=== PATIENT | female | born 2000 | race American Indian/Alaskan Native ===

== ENCOUNTER 2021-01-08 17:10 | Emergency (ER) | payer SELFPAY ==
[2021-01-08 17:16] VITALS: BP 138/87
[2021-01-08] MEDS ORDERED: ACETAMINOPHEN 325 MG TAB PO ONE (18:21)
--- NOTE | 2021-01-08 18:22 | Emergency Department Report ---
ED Head Trauma HPI - General Chief complaint: Head Injury Stated complaint: SLIPPED ON STAIRS HIT BACK OF HEAD Time Seen by Provider: 01/08/21 18:15 Source: patient Mode of arrival: Ambulatory Limitations: No Limitations - History of Present Illness Initial comments: 20-year-old female presents to the ER today with complaints of head injury. Patient states that she was walking down the steps holding a baby when she slipped on something and slid down 5 steps. She states that she struck the back of her head on the last day. She denies any LOC but complains of a severe headache and some neck pain. She has not taken anything for pain prior to coming in. She denies any nausea vomiting, vision changes, speech changes, focal weakness, numbness, tingling, back pain, chest pain or abdominal pain or any other symptoms. She is not on any blood thinners. She has no significant past medical history. MD Complaint: head injury, fall -: Sudden (this afternoon ) - Related Data Previous Rx's Medication Instructions Recorded Last Taken Type Cyclobenzaprine HCl [Flexeril 5 MG 5 mg PO TID PRN #20 tab 01/08/21 Unknown Rx TAB] Naproxen 500 mg PO Q12H PRN #20 tablet 01/08/21 Unknown Rx ED Review of Systems ROS: Stated complaint: SLIPPED ON STAIRS HIT BACK OF HEAD Other details as noted in HPI Comment: All other systems reviewed and negative Constitutional: denies: chills, fever Eyes: denies: eye pain, eye discharge, vision change ENT: denies: ear pain, throat pain Respiratory: denies: cough, shortness of breath, SOB with exertion, SOB at rest, wheezing Cardiovascular: denies: chest pain, palpitations Gastrointestinal: denies: abdominal pain, nausea, vomiting, diarrhea, constipation, hematemesis, melena, hematochezia Genitourinary: denies: urgency, dysuria, discharge Musculoskeletal: denies: back pain, joint swelling, arthralgia, myalgia Neurological: headache. denies: weakness, numbness, paresthesias, confusion, abnormal gait Psychiatric: denies: anxiety, depression, auditory hallucinations, visual hallucinations, homicidal thoughts, suicidal thoughts Hematological/Lymphatic: denies: easy bleeding, easy bruising ED Past Medical Hx - Past Medical History Previous Medical History?: No - Surgical History Past Surgical History?: No - Medications Home Medications: Home Medications Medication Instructions Recorded Confirmed Last Taken Type Cyclobenzaprine HCl [Flexeril 5 MG 5 mg PO TID PRN #20 tab 01/08/21 Unknown Rx TAB] Naproxen 500 mg PO Q12H PRN #20 tablet 01/08/21 Unknown Rx ED Physical Exam - General Limitations: No Limitations General appearance: alert, in no apparent distress - Head Head exam: Present: atraumatic, normocephalic, normal inspection, other (Tenderness to palpation to the occipital scalp) - Eye Eye exam: Present: normal appearance, PERRL, EOMI Pupils: Present: normal accommodation - ENT ENT exam: Present: normal exam, mucous membranes moist - Neck Neck exam: Present: normal inspection, tenderness (Bilateral paraspinal muscle and midline tenderness mid to lower cervical spine.), full ROM - Respiratory Respiratory exam: Present: normal lung sounds bilaterally. Absent: respiratory distress, chest wall tenderness - Cardiovascular Cardiovascular Exam: Present: regular rate, normal rhythm, normal heart sounds - GI/Abdominal GI/Abdominal exam: Present: soft. Absent: distended, tenderness, guarding - Back Exam Back exam: Present: normal inspection, full ROM - Neurological Exam Neurological exam: Present: alert, oriented X3, CN II-XII intact, normal gait - Psychiatric Psychiatric exam: Present: normal affect, normal mood - Skin Skin exam: Present: intact ED Course Vital Signs 01/08/21 17:15 Temperature 98.0 F Pulse Rate 89 Respiratory 18 Rate Blood Pressure 138/87 O2 Sat by Pulse 100 Oximetry - Radiology Data Radiology results: report reviewed Patient: DUKE MORLEY MR#: [id number] : 2000 Acct:[id number] Age/Sex: 20 / F ADM Date: 01/08/21 Loc: ED Attending Dr: Ordering Physician: LAVERNE PENA Date of Service: 01/08/21 Procedure(s): CT head/brain wo con Accession Number(s): [id number] cc: LAVERNE PENA NONENHANCED CT SCAN OF THE HEAD: INDICATION / CLINICAL INFORMATION: 20 years Female; Head injury/DENISE. TECHNIQUE: Routine CT head without contrast. All CT scans at this location are performed using CT dose reduction for ALARA by means of automated exposure control. COMPARISON: None. FINDINGS: BRAIN / INTRACRANIAL CONTENTS: No intracranial sequela from the trauma; no scalp hematoma; no air- fluid level in the visualized portions of the paranasal sinuses No acute hemorrhage, mass effect, midline shift, hydrocephalus, or acute, large territorial infarct. No chronic infarct or focal atrophy. Normal brain volume and ventricular/sulcal size for age. No significant white matter abnormality. CRANIOCERVICAL JUNCTION: No significant abnormality. ORBITS: No significant abnormality of visualized orbits. SINUSES / MASTOIDS: No significant abnormality of the visualized paranasal sinuses or mastoid air cells. ADDITIONAL FINDINGS: None. IMPRESSION: No intracranial sequela from the trauma; Signer Name: Yasmin Thompson MD Signed: 01/08/2021 6:56 PM Workstation Name: [id number] Transcribed By: BS Dictated By: Yasmin Ramos MD Electronically Authenticated By: Yasmin Ramos MD Signed Date/Time: 01/08/211855 DD/ 52 TD/TT: Patient: DUKE MORLEY MR#: [id number] : 2000 Acct:[id number] Age/Sex: 20 / F ADM Date: 01/08/21 Loc: ED Attending Dr: Ordering Physician: LAVERNE PENA Date of Service: 01/08/21 Procedure(s): CT cervical spine wo con Accession Number(s): [id number] cc: LAVERNE PENA Exam: CT cervical spine History: Fall down steps/neck pain; Technique: Contiguous thin cut axial images obtained through the cervical spine. Sagittal and coronal reconstructions performed by the technologist. All CT scans at this location are performed using CT dose reduction for ALARA by means of automated exposure control. Findings: No priors. There is no evidence of fracture or traumatic subluxation. Mild reversal of cervical lordosis Vertebral bodies are normal in height and alignment. Intervertebral disc spaces are well-maintained. No significant degenerative change seen in the uncinate or facet joints. No significant canal stenosis or osseous foraminal narrowing. Surrounding soft tissues are grossly normal. Impression: No signs of acute bony trauma to the cervical spine. Signer Name: Yasmin Thompson MD Signed: 01/08/2021 6:59 PM Workstation Name: [email or web address] Transcribed By: BS Dictated By: Yasmin Ramos MD Electronically Authenticated By: Yasmin Ramos MD Signed Date/Time: 01/08/211858 DD/ 55 TD/TT: - Medical Decision Making CT head and neck negative for anything acute. Patient is well-appearing, not toxic, and currently not in any acute distress. Currently she is neurologically intact with a normal gait in the ER. Her vital signs are stable. Discussed imaging results with patient. Discussed suspected diagnosis and treatment plan with patient. Patient expressed understanding of instructions and agree with plan. Patient stable at time of discharge. Critical care attestation.: If time is entered above; I have spent that time in minutes in the direct care of this critically ill patient, excluding procedure time. ED Disposition Clinical Impression: Head injury, Cervical strain Disposition: - TO HOME OR SELFCARE Is pt being admited?: No Does the pt Need Aspirin: No Condition: Stable Instructions: Head Injury, Adult, Cervical Sprain Additional Instructions: Take the naproxen and the robaxin as prescribed. Follow up with PCP in 1 week. Return to ED if worse. Prescriptions: Cyclobenzaprine HCl [Flexeril 5 MG TAB] 5 mg PO TID PRN #20 tab PRN Reason: Muscle Spasm Naproxen 500 mg PO Q12H PRN #20 tablet PRN Reason: PAIN Referrals: DELMAR BRAR MD [Staff Physician] - 3-5 Days Time of Disposition: 19:30
--- NOTE | 2021-01-08 19:01 | Cat Scan Report ---
NONENHANCED CT SCAN OF THE HEAD: INDICATION / CLINICAL INFORMATION: 20 years Female; Head injury/DENISE. TECHNIQUE: Routine CT head without contrast. All CT scans at this location are performed using CT dos e reduction for ALARA by means of automated exposure control. COMPARISON: None. FINDINGS: BRAIN / INTRACRANIAL CONTENTS: No intracranial sequela from the trauma; no scalp hematoma; no air-flu id level in the visualized portions of the paranasal sinuses No acute hemorrhage, mass effect, midline shift, hydrocephalus, or acute, large territorial infarct. No chronic infarct or focal atrophy. Normal brain volume and ventricular/sulcal size for age. No sig nificant white matter abnormality. CRANIOCERVICAL JUNCTION: No significant abnormality. ORBITS: No significant abnormality of visualized orbits. SINUSES / MASTOIDS: No significant abnormality of the visualized paranasal sinuses or mastoid air kelly ls. ADDITIONAL FINDINGS: None. IMPRESSION: No intracranial sequela from the trauma; Signer Name: Yasmin Thompson MD Signed: 01/08/2021 6:56 PM Workstation Name: [id number]
--- NOTE | 2021-01-08 19:04 | Cat Scan Report ---
Exam: CT cervical spine History: Fall down steps/neck pain; Technique: Contiguous thin cut axial images obtained through the cervical spine. Sagittal and caballero l reconstructions performed by the technologist. All CT scans at this location are performed using CT dose reduction for ALARA by means of automated exposure control. Findings: No priors. There is no evidence of fracture or traumatic subluxation. Mild reversal of cervical lordosis Vertebr al bodies are normal in height and alignment. Intervertebral disc spaces are well-maintained. No significant degenerative change seen in the uncinate or facet joints. No significant canal stenosi s or osseous foraminal narrowing. Surrounding soft tissues are grossly normal. Impression: No signs of acute bony trauma to the cervical spine. Signer Name: Yasmin Thompson MD Signed: 01/08/2021 6:59 PM Workstation Name: [id number]
== END 2021-01-08 19:47 | disposition home or self-care (01) ==
LOC: ED 17:10
DX: S29.012A Strain of muscle and tendon of back wall of thorax, initial encounter (principal); S09.90XA Unspecified injury of head, initial encounter; Z79.899 Other long term (current) drug therapy; W10.9XXA Fall (on) (from) unspecified stairs and steps, initial encounter; Y93.89 Activity, other specified; Y92.89 Other specified places as the place of occurrence of the external cause; Y99.8 Other external cause status
CPT/HCPCS: 70450; 72125; 99283